=== PATIENT | male | born 1960 | race Caucasian/White ===

== ENCOUNTER 2021-04-15 20:18 | Emergency (ER) | payer MEDICARE, MEDICAID, SELFPAY ==
--- NOTE | ~2021-04-15 | CT_ITS ---
EXAMINATION: CT HEAD WITHOUT CONTRAST CT CERVICAL SPINE WITHOUT CONTRAST CLINICAL INFORMATION: Fall COMPARISON: 12/23/2014. TECHNIQUE: Multidetector CT imaging of the head and cervical spine was performed without the use of intravenous contrast. Multiplanar reformats are reviewed. This CT examination was performed using dose optimization techniques as appropriate, variously including the following: *Automated exposure control *Adjustment of mA and/or kV according to patient size (this includes techniques or standardized protocols for targeted exams where dose is matched to indication/reason for exam; i.e. extremities or head) *Use of iterative reconstruction technique DLP: 1832 mGy-cm. FINDINGS: There is no evidence of acute intracranial hemorrhage or territorial infarction. No abnormal mass effect or midline shift is seen. Mercado to white matter differentiation is well preserved. No extra-axial fluid collections are identified. The ventricles are normal in size. There is no abnormal attenuation within the brain parenchyma. Cavernous carotid calcifications. Thin left frontal calvarial subgaleal hematoma. Underlying calvarium intact. The mastoid air cells and visualized portions of the paranasal sinuses are well-aerated. Atlantooccipital alignment is maintained. The vertebral bodies and posterior elements align normally. No acute fracture or subluxation. Vertebral body heights are maintained.Moderate facet arthropathy on the right at C2-C3 and C3-C4. The cervicomedullary junction and spinal cord are grossly unremarkable. The paraspinal soft tissues are unremarkable. The imaged lung apices are clear CT/CT head/brain wo con IMPRESSION: No acute intracranial pathology. No cervical spine fracture or malalignment.
--- NOTE | ~2021-04-15 | CT_ITS ---
EXAMINATION: CT HEAD WITHOUT CONTRAST CT CERVICAL SPINE WITHOUT CONTRAST CLINICAL INFORMATION: Fall COMPARISON: 12/23/2014. TECHNIQUE: Multidetector CT imaging of the head and cervical spine was performed without the use of intravenous contrast. Multiplanar reformats are reviewed. This CT examination was performed using dose optimization techniques as appropriate, variously including the following: *Automated exposure control *Adjustment of mA and/or kV according to patient size (this includes techniques or standardized protocols for targeted exams where dose is matched to indication/reason for exam; i.e. extremities or head) *Use of iterative reconstruction technique DLP: 1832 mGy-cm. FINDINGS: There is no evidence of acute intracranial hemorrhage or territorial infarction. No abnormal mass effect or midline shift is seen. Mercado to white matter differentiation is well preserved. No extra-axial fluid collections are identified. The ventricles are normal in size. There is no abnormal attenuation within the brain parenchyma. Cavernous carotid calcifications. Thin left frontal calvarial subgaleal hematoma. Underlying calvarium intact. The mastoid air cells and visualized portions of the paranasal sinuses are well-aerated. Atlantooccipital alignment is maintained. The vertebral bodies and posterior elements align normally. No acute fracture or subluxation. Vertebral body heights are maintained.Moderate facet arthropathy on the right at C2-C3 and C3-C4. The cervicomedullary junction and spinal cord are grossly unremarkable. The paraspinal soft tissues are unremarkable. The imaged lung apices are clear CT/CT cervical spine wo con IMPRESSION: No acute intracranial pathology. No cervical spine fracture or malalignment.
[2021-04-15 20:30] VITALS: BP 149/93; BP 160/90; PULSE 105; PULSE 96; RESP 18; TEMP 36.6; O2SAT 92; O2SAT 94; BMI 31.6
[2021-04-15 20:41] LABS: Glucose, Whole Blood 85 mg/dL (60-115)
--- NOTE | 2021-04-15 20:45 | ED_ITS ---
HPI - Fall General Chief Complaint: Wound/Laceration Stated Complaint: FALL LOWW BLOOD SUGAR Time Seen by Provider: 04/15/21 20:43 Source: patient and EMS Mode of arrival: EMS History of Present Illness HPI Narrative: Patient had few drinks earlier today had a mechanical fall hitting his head to the ground is for facial abrasion/laceration on the left side of forehead no loss of consciousness blood sugar at scene was 60 patient not diabetic Related Data Allergies Allergy/AdvReac Type Severity Reaction Status Date / Time omeprazole [From PRILOSEC] Allergy Unknown SWELLING Unverified 03/17/20 18:52 penicillin G [PENICILLIN G] Allergy Unknown ANAPHYLAXIS Unverified 03/17/20 18:52 sulfamethoxazole Allergy Unknown ANAPHYLAXIS Unverified 03/17/20 18:52 [From BACTRIM] trimethoprim [From BACTRIM] Allergy Unknown ANAPHYLAXIS Unverified 03/17/20 18:52 Review of Systems Review of Systems: Yes all other systems are reviewed and are negative [facility] Social History Social History Advance Directives: No Physical Exam Vital Signs: Vital Signs: Last Vital Signs Temp 97.9 F 04/15/21 20:30 Pulse 105 H 04/15/21 20:30 Resp 18 04/15/21 20:30 BP 149/93 H 04/15/21 20:30 Pulse Ox 92 04/15/21 20:30 Body Mass Index 31.6 Const: General: cooperative, comfortable and intoxicated appearing Nutritional Appearance: average body habitus Orientation/consciousness: o riented to person and oriented to place HENMT: Head: Yes No palpable skull fracture present and Yes normocephalic Head images: 1. Superficial abrasions and small laceration 1 cm no active bleeding Ears: hearing grossly normal bilaterally, external ears normal and TM's normal bilaterally Face and sinus: Yes normal facial exam Teeth and gingiva: dentition normal Eyes: General: appearance normal, both eyes and all related structures Neck: Neck: Yes normal visual inspection and Yes full ROM Resp: Effort & Inspection: normal respiratory effort Auscultation: clear to auscultation bilaterally Cardio: Palpation: normal PMI Rate: regular rate Rhythm: regular rhythm Heart sounds: S1 normal heart sound present and S2 normal heart sound present GI: Inspection: Yes normal to inspection Palpation (GI): Soft to palpation and nontender : General: Yes no CVA tenderness Back/Spine/Pelvis: Back: no CVA tenderness Thoracic/Lumbar Spine: No thoracic spinal tenderness and No lumbar spinal tenderness Neuro: General: oriented to person, oriented to place, moves all extremities, no focal motor deficits and CN's II-XI intact bilaterally Extrem: General: Yes normal to inspection and Yes full ROM Procedures Laceration Laceration 1: Site: face Side (If applicable): left Size (cm): 1 Description: linear Skin layer closed with: other (Dermabond) MDM - Fall Medical Records Medical records narrative: Patient intoxicated with minor head injury CT head and C-spine negative blood sugar 105 patient not diabetic will let him sleep until get sober and discharged in the morning Lab Data Attestation: I reviewed the patient's lab results. Result diagrams: 04/15/21 21:33 04/15/21 21:33 Labs: Lab Results 04/15/21 04/15/21 04/15/21 Range/Units 20:37 21:33 21:33 WBC 8.8 (4.8-10.8) X10*3/uL RBC 5.83 H (4.60-5.80) X10*6/uL Hgb 15.6 (14.0-18.0) g/dl Hct 47.2 (42-52) % MCV 81.0 (80-98) fL MCH 26.8 L (27.0-33.0) pg MCHC 33.1 (31.0-36.0) g/dl RDW 13.7 (11.0-16.0) % Plt Count 255 (160-400) X10*3/uL MPV 10.1 (9.4-12.4) fL Immature Gran % (Auto) 0.3 (0.0-0.4) % Neut % (Auto) 62.1 (45-73) % Lymph % (Auto) 31.3 (20-40) % [place] % (Auto) 4.7 (2-11) % Eos % (Auto) 0.8 (0-4) % Baso % (Auto) 0.8 (0-2) % Lymph # (Auto) 2.7 (1.2-4.9) X10*3/uL [place] # (Auto) 0.4 (0.1-1.2) X10*3/uL Eos # (Auto) 0.1 (0.0-0.4) X10*3/uL Baso # (Auto) 0.1 (0.0-0.2) X10*3/uL Abs Immat Gran (auto) 0.03 (0.00-0.03) X10*3/uL Absolute Neuts (auto) 5.4 (2.0-8.3) X10*3/uL Absolute Nucleated RBC 0.000 (0.0-0.012) X10*3/uL Nucleated RBC % (auto) 0.0 (0.0-0.2) /100WBC Sodium 143 (135-145) mmol/L Potassium 4.3 (3.3-5.1) mmol/L Chloride 104 (96-108) mmol/L Carbon Dioxide 24 (22-29) mmol/L Anion Gap 19 (12-20) BUN 19 H (9-16) mg/dL Creatinine 0.93 (0.5-1.4) mg/dL Estim Creat Clear Calc 94.1 Estimated GFR > 60 POC Glucose 85 (60-115) mg/dL Random Glucose 105 (60-115) mg/dL Calcium 9.0 (8.4-10.2) mg/dL Magnesium 2.1 (1.6-2.6) mg/dL Total Bilirubin 0.3 (0.0-1.0) mg/dL AST 27 (5-37) U/L ALT 16 (0-40) U/L Alkaline Phosphatase 73 (39-117) U/L Total Protein 7.1 (6.5-8.0) g/dL Albumin 4.5 (3.5-5.0) g/dL Ethyl Alcohol mg/dL 04/15/21 Range/Units 21:33 WBC (4.8-10.8) X10*3/uL RBC (4.60-5.80) X10*6/uL Hgb (14.0-18.0) g/dl Hct (42-52) % MCV (80-98) fL MCH (27.0-33.0) pg MCHC (31.0-36.0) g/dl RDW (11.0-16.0) % Plt Count (160-400) X10*3/uL MPV (9.4-12.4) fL Immature Gran % (Auto) (0.0-0.4) % Neut % (Auto) (45-73) % Lymph % (Auto) (20-40) % [place] % (Auto) (2-11) % Eos % (Auto) (0-4) % Baso % (Auto) (0-2) % Lymph # (Auto) (1.2-4.9) X10*3/uL [place] # (Auto) (0.1-1.2) X10*3/uL Eos # (Auto) (0.0-0.4) X10*3/uL Baso # (Auto) (0.0-0.2) X10*3/uL Abs Immat Gran (auto) (0.00-0.03) X10*3/uL Absolute Neuts (auto) (2.0-8.3) X10*3/uL Absolute Nucleated RBC (0.0-0.012) X10*3/uL Nucleated RBC % (auto) (0.0-0.2) /100WBC Sodium (135-145) mmol/L Potassium (3.3-5.1) mmol/L Chloride (96-108) mmol/L Carbon Dioxide (22-29) mmol/L Anion Gap (12-20) BUN (9-16) mg/dL Creatinine (0.5-1.4) mg/dL Estim Creat Clear Calc Estimated GFR POC Glucose (60-115) mg/dL Random Glucose (60-115) mg/dL Calcium (8.4-10.2) mg/dL Magnesium (1.6-2.6) mg/dL Total Bilirubin (0.0-1.0) mg/dL AST (5-37) U/L ALT (0-40) U/L Alkaline Phosphatase (39-117) U/L Total Protein (6.5-8.0) g/dL Albumin (3.5-5.0) g/dL Ethyl Alcohol 334 H* mg/dL Discharge Plan Discharge Clinical Impression: Minor closed head injury Alcohol intoxication Qualifiers: Complication of substance-induced condition: uncomplicated Qualified Code(s): F10.920 - Alcohol use, unspecified with intoxication, uncomplicated Patient Disposition: Home, Self-Care Instructions: Head Injury (ED), Alcohol Intoxication (ED) Additional Instructions: Stop drinking alcohol Follow-up with detox if need any help
[2021-04-15 21:38] LABS: MANUAL DIFF FLAG NO
[2021-04-15 21:48] LABS: Basophils Absolute Auto 0.1 X10*3/uL (0.0-0.2); Basophils Percent Auto 0.8 % (0-2); Eosinophils Absolute Auto 0.1 X10*3/uL (0.0-0.4); Eosinophils Percent Auto 0.8 % (0-4); Hematocrit 47.2 % (42-52); Hemoglobin 15.6 g/dl (14.0-18.0); Imm Gran Abs Auto 0.03 X10*3/uL (0.00-0.03); Imm Gran Pct Auto 0.3 % (0.0-0.4); Lymphocytes Absolute Auto 2.7 X10*3/uL (1.2-4.9); Lymphocytes Percent Auto 31.3 % (20-40); Mean Corpuscular HGB Conc 33.1 g/dl (31.0-36.0); Mean Corpuscular Hemoglobin 26.8 pg (27.0-33.0); Mean Platelet Volume 10.1 fL (9.4-12.4); Monocytes Absolute Auto 0.4 X10*3/uL (0.1-1.2); Monocytes Percent Auto 4.7 % (2-11); Neutrophils Absolute Auto 5.4 X10*3/uL (2.0-8.3); Neutrophils Percent Auto 62.1 % (45-73); Platelet Count 255 X10*3/uL (160-400); Red Blood Count 5.83 X10*6/uL (4.60-5.80); Red Cell Distribution Width 13.7 % (11.0-16.0); White Blood Count 8.8 X10*3/uL (4.8-10.8)
[2021-04-15 21:54] LABS: Ethanol 334 mg/dL
[2021-04-15 21:59] LABS: Alanine Aminotransferase 16 U/L (0-40); Albumin Level 4.5 g/dL (3.5-5.0); Alkaline Phosphatase 73 U/L (39-117); Anion Gap 19 (12-20); Aspartate Amino Transferase 27 U/L (5-37); Bilirubin Total 0.3 mg/dL (0.0-1.0); Blood Urea Nitrogen 19 mg/dL (9-16); Carbon Dioxide 24 mmol/L (22-29); Chloride 104 mmol/L (96-108); Creatinine Clr Calc Pharmacy 94.1; Estimated Glomerular Filt Rate > 60; Glucose Random 105 mg/dL (60-115); Magnesium 2.1 mg/dL (1.6-2.6); Potassium 4.3 mmol/L (3.3-5.1); Sodium 143 mmol/L (135-145); Total Protein 7.1 g/dL (6.5-8.0)
[2021-04-16 00:30] VITALS: RESP 16
[2021-04-16 06:39] VITALS: BP 147/78; PULSE 100; RESP 20; O2SAT 88
--- NOTE | 2021-04-16 13:52 | MHC.RECOVSUP ---
Recovery Support note: No ATS beds available at this time. [facility] Patient expresses concern that he will continue to drink if he goes home. Discussed [facility] with patient. Patient is agreeable to discharging to [facility] to discuss overnight stay with [facility] staff. Discussed case with patient's ED provider and RN. Patient provided with contact information for this show card writer in the event that he has any difficulty getting [facility] the [facility] tomorrow.
== END 2021-04-16 06:52 | disposition home or self-care (01) ==
PROVIDERS: Emergency Provider Internal Medicine
DX: F10.120 Alcohol abuse with intoxication, uncomplicated (principal); Y90.8 Blood alcohol level of 240 mg/100 ml or more; S01.81XA Laceration without foreign body of other part of head, initial encounter; E16.2 Hypoglycemia, unspecified; W18.30XA Fall on same level, unspecified, initial encounter; Y93.9 Activity, unspecified; Y92.9 Unspecified place or not applicable; Y99.9 Unspecified external cause status
CPT/HCPCS: 12011; 36415; 70450; 72125; 80053; 82077; 82947; 83735; 85025; 99283; 99284

== ENCOUNTER 2021-04-16 07:29 | Emergency (ER) | payer OTHER, SELFPAY ==
--- NOTE | ~2021-04-16 | CT_ITS ---
EXAMINATION: CT HEAD WITHOUT CONTRAST CLINICAL INFORMATION: 7-year-old male with headaches COMPARISON: Head CT April 15, 2021 TECHNIQUE: Contiguous axial imaging was performed from the skull base to vertex without intravenous administration of contrast. This CT examination was performed using dose optimization techniques as appropriate, variously including the following: *Automated exposure control *Adjustment of mA and/or kV according to patient size (this includes techniques or standardized protocols for targeted exams where dose is matched to indication/reason for exam; i.e. extremities or head) *Use of iterative reconstruction technique DLP: 855 mGy-cm FINDINGS: There is no evidence of acute intracranial hemorrhage or territorial infarction. No abnormal mass effect or midline shift is seen. Mercado to white matter differentiation is well preserved. No extra-axial fluid collections are identified. The ventricles are normal in size. There is no abnormal attenuation within the brain parenchyma. Small hematoma of the left frontal scalp again identified. No underlying osseous injury. The mastoid air cells and visualized portions of the paranasal sinuses are well aerated. There is mild mucosal thickening of the left maxillary sinus and a few ethmoid air cells. Calcifications of the cavernous carotid arteries. CT/CT head/brain wo con IMPRESSION: Similar left frontal scalp hematoma. No acute intracranial pathology.
[2021-04-16 07:32] VITALS: BP 164/82; PULSE 100; RESP 18; TEMP 36.6; O2SAT 95; BMI 30.4
--- NOTE | 2021-04-16 08:08 | ED_ITS ---
HPI - Headache General Chief Complaint: Headache Stated Complaint: FALL HEAD INJ Time Seen by Provider: 04/16/21 08:00 Source: patient Mode of arrival: ambulatory Limitations: no limitations History of Present Illness HPI Narrative: 61-year-old male presents to the emergency department the 2nd time in the last 12 hours complaining of a headache. He states he was drinking yesterday fell hit his head he had a 1 cm laceration that was glued shot here in the emergency department last night had negative CT scan and the patient comes back today stating that he has a concussion which is likely. He is complaining of headache and nausea. Sensitivity to light he denies history of headaches in the past. MD elicited complaint: headache Pertinent past history: recent trauma Related Data Allergies Allergy/AdvReac Type Severity Reaction Status Date / Time omeprazole [From PRILOSEC] Allergy Unknown SWELLING Unverified 03/17/20 18:52 penicillin G [PENICILLIN G] Allergy Unknown ANAPHYLAXIS Unverified 03/17/20 18:52 sulfamethoxazole Allergy Unknown ANAPHYLAXIS Unverified 03/17/20 18:52 [From BACTRIM] trimethoprim [From BACTRIM] Allergy Unknown ANAPHYLAXIS Unverified 03/17/20 18:52 Review of Systems Review of Systems: Review of systems: General: Patient denies any fever chills recent illness or falls Musculoskeletal: Denies back pain or body aches or other injuries HEENT: denies headache, runny nose, ear pain Respiratory: denies shortness of breath, cough Cardiovascular: no chest pain or palpitations : denies dysuria, frequency Abdomen: no nausea vomiting denies abdominal pain Extremities: no swelling, no pain Skin: no diaphoresis Yes all other systems are reviewed and are negative PENDING SALE TO [facility] Social History Social History Alcohol intake: current Alcohol intake frequency: 3 or more drinks per day Patient Tobacco Use Status: Tobacco use Unknown Use of substances other than those prescribed or required for medical reasons: Unknown Advance Directives: No Advance Directives Information Provided: No Physical Exam Vital Signs: Vital Signs: Last Vital Signs Temp 97.8 F 04/16/21 07:32 Pulse 110 H 04/16/21 09:36 Resp 18 04/16/21 07:32 BP 152/91 H 04/16/21 09:36 Pulse Ox 94 04/16/21 09:36 Body Mass Index 30.4 Neurological exam: CN II- XII tested. Patient is alert and oriented to person place and time. Patient has no dysphagia or dysarthia, denies good vision in all four vision orellana no nystagmus on exam, good strength to upper and lower extremities with normal reflexes to brachioradialis, wrist, patella and achilles. Negative romberg, good finger to nose and heel to mayers. General: Well-appearing well-nourished in no signs of distress HEENT: Normocephalic atraumatic Neck: No signs of JVD, no masses no tenderness or lymphadenopathy Cardiovascular: Regular rate and rhythm Respiratory: Clear to auscultation bilaterally Abdomen: Soft nontender no masses Extremities: Normal pedal pulses no signs of edema Skin: Dry warm no rashes Back: No tenderness full ROM MDM - Headache MDM Narrative Medical decision making narrative: 61-year-old male with worsening headache he states that he has had an abnormal gait but patient was witnessed ambulating straight without any difficulty. I will repeat the CT scan since he is 61 years old did have trauma to his head I will give the patient Zofran and Tylenol and reassess. 0935 CT of the head is negative patient will ambulate patient that Zofran and Tylenol. Nurse was concerned the patient shaky. Patient told me that he does not drink every day when he went to talk to me again after the nurse said that he was shaky he admits to drinking daily. I will recheck vitals. 1326 Patient seen by substance home management supervisor who will get patient a ride over to a center where he can spend the night. NO detox beds available right now. He has been ambulating in the ED without issue. I will discharge home. Discharge Plan Discharge Clinical Impression: Minor closed head injury, Alcohol abuse Patient Disposition: Home, Self-Care Instructions: Alcohol Use Disorder (ED), Alcohol Withdrawal (ED), Abrasion (ED), Facial Contusion (ED), Hematoma (ED) Additional Instructions: Please call to follow up for Detox
[2021-04-16] MEDS: Acetaminophen 325 MG TABLET 650 MG PO (08:43)
[2021-04-16] MEDS: Ondansetron ODT 4 MG TAB.RAPDIS TRANSLINGU (08:43)
[2021-04-16 09:36] VITALS: BP 152/91; PULSE 110; O2SAT 94
[2021-04-16] MEDS: chlordiazePOXIDE HCl 25 MG CAPSULE 50 MG PO (09:40)
--- NOTE | 2021-04-16 10:25 | MHC.RECOVSUP ---
Recovery Support note: Patient is a 61 year old Palestinian speaking male who presented to [facility] ED due to a headache. Patient was at [facility] ED on 04/15 after a fall while intoxicated. Patient is reporting withdrawal symptoms at this time and a desire to get into treatment. Patient reports he drinks around a pint of vodka daily. Patient reports life stressors contributing to his drinking. Patient [facility] but his [facility] got in the way of this. Patient is willing to go elsewhere for treatment. This commercial underwriter will refer patient to ATS facilities. Discussed case with patient's ED provider.
== END 2021-04-16 13:46 | disposition home or self-care (01) ==
PROVIDERS: Emergency Provider Student in an Organized Health Care Education/Training Program
DX: S09.90XA Unspecified injury of head, initial encounter (principal); F10.10 Alcohol abuse, uncomplicated; W18.30XA Fall on same level, unspecified, initial encounter; Y93.9 Activity, unspecified; Y92.9 Unspecified place or not applicable; Y99.9 Unspecified external cause status
CPT/HCPCS: 70450; 99284; 99285